=== PATIENT | female | born 1965 | race Caucasian/White ===

== ENCOUNTER → 2019-10-31 | Outpatient (CLI) | payer OTHER | LOC: MC.RAD 10-26 09:15 | DX: Z12.31 Encounter for screening mammogram for malignant neoplasm of breast (principal) ==

== ENCOUNTER → 2020-06-06 | Outpatient (CLI) | payer OTHER | LOC: COL.RAD 07:01 | DX: N30.20 Other chronic cystitis without hematuria (principal) ==